=== PATIENT | female | born 1995 | race African-American/Black ===

== ENCOUNTER 2018-05-01 16:12 | Emergency (ER) | payer OTHER ==
[~2018-05-01] VITALS: Ht 172.7 cm; Wt 57.6 kg
[~2018-05-01 16:12] MED LIST: NOHOMEMEDICATIONS; ZANAFLEX4 MG PO
[2018-05-01 16:14] VITALS: BP 121/68
[2018-05-01 16:42] LABS: URINE BILIRUBIN NEGATIVE (Negative); URINE BLOOD TRACE (Negative); URINE CLARITY CLEAR; URINE COLOR YELLOW; URINE GLUCOSE-RANDOM* NEGATIVE (Negative); URINE KETONES NEGATIVE (Negative); URINE LEUKOCYTES-REFLEX NEGATIVE (Negative); URINE NITRITE-REFLEX NEGATIVE (Negative); URINE PROTEIN (DIPSTICK) NEGATIVE (Negative); URINE SPECIFIC GRAVITY 1.015 (1.005-1.035); URINE UROBILINOGEN 0.2 E.U./dl (0.2-1.0)
[2018-05-01] MEDS ORDERED: IBUPROFEN 600600 M1 PO ×2 (17:32→17:55)
[2018-05-01] MEDS ORDERED: AMOXICILLIN 50500 MG PO ×2 (17:32→17:55)
== END 2018-05-01 18:40 | disposition home or self-care (01) ==
LOC: ER 16:12
PROVIDERS: Nurse Practitioner Family
DX: N76.0 Acute vaginitis (principal); K08.89 Other specified disorders of teeth and supporting structures